=== PATIENT | female | born 2000 | race Caucasian/White ===

== ENCOUNTER 2021-05-03 16:44 | Emergency (ER) | payer BC ==
--- NOTE | 2021-05-03 17:01 | NUR ---
CALLED FOR TRIAGE, UNABLE TO LOCATE PT.
--- NOTE | 2021-05-03 17:11 | NUR ---
PT CALLED FOR TRIAGE, UNABLE TO LOCATE PT.
--- NOTE | 2021-05-03 17:20 | NUR ---
Mj carballo in [facility] - 05/03/21 at 1824 by [facility] PT [email or web address]
--- NOTE | 2021-05-03 17:25 | NUR ---
UNABLE TO LOCATE PT.
--- NOTE | 2021-05-03 18:10 | NUR ---
ACCORDING TO LICENSE CLERK, PT IS OUTSIDE WITH FRIENDS. SEARCHED OUTSIDE AND STILL UNABLE TO LOCATE PT.
--- NOTE | 2021-05-03 18:20 | NUR ---
Per spare parts clerk, pt LWBS.
== END 2021-05-03 18:20 | disposition left against medical advice (07) ==
LOC: SED 16:44
DX: M54.9 Dorsalgia, unspecified (principal); Z53.21 Procedure and treatment not carried out due to patient leaving prior to being seen by health care provider